=== PATIENT | male | born 1935 | race Caucasian/White ===

== ENCOUNTER 2016-06-21 05:51 | Inpatient (IN) | payer MEDICARE, OTHER ==
--- NOTE | ~2016-06-21 | DS ---
Discharge Summary [facility] [address] [place]. [address] NAME: HELGA BOLAND : 35 STATUS : DIS IN PAT#: [id number] AGE: 81 ADM/REG DATE : 06/21/16 MR#: [id number] REPORT SERV DATE: 07/08/16 DICTATED BY: RENETTA BENNETT DATE: 07/08/16 REPORT STATUS : Draft TRANSCRIBED BY: ZOË DATE: 07/08/16 Data Collection from hospitalization DISCHARGE DIAGNOSES: 1. Coronary artery disease, status post coronary artery bypass grafting. 2. Paroxysmal atrial fibrillation - sinus rhythm. 3. Anemia. 4. Hypertension. 5. Hyperlipidemia. 6. History of prostate cancer. 7. Macular degeneration. 8. Bilateral cataracts. 9. Benign prostatic hypertrophy. 10.Nephrolithiasis. 11.Degenerative joint disease. 12.Premature ventricular contractions. 13.Former smoker. CONSULTATIONS: 1. Chasity Wright M.D. 2. Eugenia. Luis Esquivel M.D. PROCEDURES PERFORMED: 1. Cardiac catheterization on 06/21/2016. 2. Urgent coronary artery bypass grafting x3 with left internal mammary artery to the first obtuse marginal, reverse saphenous vein graft placed to the ramus intermedius, reverse saphenous vein graft placed to the posterior descending artery; tricuspid valve repair using a 30-mm annuloplasty ring system (MC3); endoscopic vein harvest of the saphenous vein from the right leg; transesophageal echocardiography on 06/22/2016. 3. Carotid blood flow study on 06/21/2016. MEDICATIONS: Uroxatral 10 mg daily, Cordarone 200 mg daily, vitamin C 1000 mg twice a day, aspirin 81 mg daily, Lipitor 40 mg at bedtime, Cardura 4 mg every morning, ferrous sulfate 300 mg twice a day, Lasix 20 mg daily, Morley 5/325 one tablet every eight hours as needed, Prinivil 5 mg daily, Robaxin 750 mg twice a day, Lopressor 25 mg twice a day, Nitrostat 0.4 mg sublingually as needed, and Roxicodone 5 mg every four hours as needed. CONDITION AT DISCHARGE: Stable. DISPOSITION: The patient was discharged home to be followed by home health care on a low- sodium, low-cholesterol, cardiac diet with activities as instructed. He would follow up with Ivan Almazan on 08/25/2016. He would follow up with Dr. Kun Esquivel on 08/03/2016. He would follow up with Dr. Chasity Wright on 08/04/2016 and he would follow up with Dr. Johnna Weeks on 07/06/2016. He would follow up at cardiac rehab on 08/11/2016. HOSPITAL COURSE: This is an 81-year-old man who is very active in vital who reported having some chest discomfort and shortness of breath as well as activity intolerance over the past several weeks or months. This had been progressive and was now associated with activity as Discharge Summary [place] [id number] [place]. [address] NAME: HELGA BOLAND : 35 STATUS : DIS IN PAT#: [id number] AGE: 81 ADM/REG DATE : 06/21/16 MR#: [id number] REPORT SERV DATE: 07/08/16 DICTATED BY: RENETTA BENNETT DATE: 07/08/16 REPORT STATUS : Draft TRANSCRIBED BY: ZOË DATE: 07/08/16 benign as planting gallardo. He reports that the pain does not awaken him at night. He does not had any nocturnal symptoms and does not have any symptoms at rest. The pain is relieved with rest. He had recently been evaluated by Dr. Kun Esquivel with a stress test that was graded as a moderate risk. He also had an echocardiogram that showed normal left ventricular function and no significant valvulopathy and mild left atrial enlargement. It was felt that he would need to undergo a coronary arteriogram and possible further surgical intervention. He was admitted at this time for further evaluation and treatment. Upon admission, he was taken to the cardiac lab support service tech by Dr. Kun Esquivel, where he underwent the above-mentioned procedure. He tolerated this well, and there were no complications. The patient was found to have severe two-vessel disease in the circumflex and right coronary arteries with near subtotal occlusion of the circumflex. It was felt that the patient would need to undergo coronary artery bypass grafting. The following day, the patient was taken to the operating room where he underwent the above-mentioned procedure. He tolerated this well, and there were no complications. On postop day #1, he had decreased breath sounds. His abdomen was soft and nontender. He had no edema. He is going to be watched in the ICU that day. We encouraged him to mobilize. He did have some chest wall pain. He had no dyspnea. Platelet count was decreased. Pepcid was stopped. On 06/24/2016, white count was 12.3. His lungs were clear. Pain was well controlled. He had no shortness of breath. Pacing wires and chest tubes were discontinued. On 06/25/2016, he did have some nausea. Reglan was given. He has not had a bowel movement. Amiodarone would be held for 36 hours. On 06/27/2016, he complained of having a poor energy level. He also had some shortness of breath. He had audible wheezing. Chest x-ray showed bibasilar small effusions and atelectasis. He was seen by Dr. Chasity Wright regarding the shortness of breath and wheezing. He had been getting bronchodilators and had received Lasix that day. He said he was feeling better than he did that morning. He felt like the breathing treatments were helping him significantly. He had not been using his incentive spirometer as prescribed. Bronchodilators were continued. EzPAP was added to his regimen. We encouraged him to use the incentive spirometer. She recommended adding nebulized steroids with budesonide via nebulization. Procalcitonin level and BNP were going to be checked. We would recheck his chest x-ray and wean oxygen as tolerated. He was encouraged to increase his activity. The next day, discharge planning was performed. He said he was feeling much better. His lungs were clear. He has had a solitary episode of paroxysmal atrial fibrillation. I did favor no anticoagulation in this patient if this was okay with Cardiology. He was breathing better. On 06/29/2016, he denied any cough. He felt like his breathing was better. Home O2 was recommended if he would qualify. He had no chest pain. His shortness of breath had decreased. He did have a bowel movement. It was felt that he would need warfarin. He was changed to oral amiodarone. Discharge instructions were given. Due to his improved and stable condition, he was discharged home to be followed by home health care with the above- stated instructions. Information collected by: Phoebe Fish I submit the above information as my discharge summary. Discharge Summary [place] [address] [address] NAME: HELGA BOLAND : 35 STATUS : DIS IN PAT#: [id number] AGE: 81 ADM/REG DATE : 06/21/16 MR#: [id number] REPORT SERV DATE: 07/08/16 DICTATED BY: RENETTA BENNETT DATE: 07/08/16 REPORT STATUS : Draft TRANSCRIBED BY: JAVIERL DATE: 07/08/16 TG/ZOË Renetta Bennett M.D. / [id number] CC: Vinny Trinidad OLIVER M
--- NOTE | ~2016-06-21 | OP ---
Record Of Operation [facility] [address] [place]. [address] NAME: HELGA BOLAND : 35 STATUS : ADM IN PAT#: [id number] AGE: 81 ADM/REG DATE : 06/21/16 MR#: [id number] REPORT SERV DATE: 06/22/16 DICTATED BY: RENETTA BENNETT DATE: 06/22/16 REPORT STATUS : Draft TRANSCRIBED BY: MODL DATE: 06/22/16 DATE OF PROCEDURE: 06/22/2016 PREOPERATIVE DIAGNOSES: 1. Coronary artery disease with angina. 2. Tricuspid valve insufficiency. 3. Hypertension. 4. Hyperlipidemia. 5. Obesity. 6. History of prostate carcinoma. POSTOPERATIVE DIAGNOSES: 1. Coronary artery disease with angina. 2. Tricuspid valve insufficiency. 3. Hypertension. 4. Hyperlipidemia. 5. Obesity. 6. History of prostate carcinoma. PROCEDURES PERFORMED: 1. Urgent coronary artery bypass grafting x3, left internal mammary artery placed to the first obtuse marginal, reverse saphenous vein graft placed to the ramus intermedius, reverse saphenous vein graft placed to the posterior descending artery. 2. Tricuspid valve repair using a 30 mm annuloplasty ring system (MC3). 3. Endoscopic vein harvest of the saphenous vein from the right leg. 4. Transesophageal echocardiography. SURGEON: Renetta Bennett M.D. ASSISTANTS: Lobito Maldonado and Nimisha Anaya. ANESTHESIA: General with Dr. Silva. MORTGAGE BRANCH MANAGER: Kun Esquivel M.D. PRIMARY CARE: Layton Weeks. INDICATIONS: This is an 81-year-old gentleman who has been having episodes of chest discomfort. He underwent a stress test in May that demonstrated moderate risk with apical and basilar inferior ischemia. Dr. Esquivel performed cardiac catheterization demonstrating significant two-vessel coronary artery disease with critical lesions in the circumflex and right coronary arteries. The circumflex vessel was not amenable to percutaneous intervention and we were asked to see the patient for possible coronary artery bypass grafting. We discussed this operation with the patient, and after lengthy discussion of the operations, its indication and risks, he wished to proceed. STS predicted mortality of 1.5%, morbidity mortality of 11.7%. Record Of Operation [facility] [address] [place]. [address] NAME: HELGA BOLAND : 35 STATUS : ADM IN PAT#: [id number] AGE: 81 ADM/REG DATE : 06/21/16 MR#: [id number] REPORT SERV DATE: 06/22/16 DICTATED BY: RENETTA BENNETT DATE: 06/22/16 REPORT STATUS : Draft TRANSCRIBED BY: ZOË DATE: 06/22/16 FINDINGS AT OPERATION: 1. Cross-clamp 112 minutes, total pump time 123 minutes. 2. The obtuse marginal was 2 mm and mildly diseased. A 3 mm THORNTON was anastomosed to it with good runoff. 3. The ramus intermedius was 1.75 mm and mildly diseased. A 3.5 mm RSVG was anastomosed to it with good runoff. 4. The posterior descending artery was 2 mm and moderately diseased. A 3.5 mm RSVG was anastomosed to it with good runoff. 5. The vein quality was good and all grafts had good Doppler signal at the end of the case. 6. The tricuspid valve had moderate TR echocardiography. Tricuspid valve annulus was measured to be about 43 to 45 mm. 7. The tricuspid valve was repaired using a 30 mm annuloplasty ring system. This was secured in place using 14 Cor-Knots. 8. YANE at the end of the operation demonstrated good left ventricular function. There was mild mitral insufficiency and no residual tricuspid insufficiency. PATHOLOGIC SPECIMENS: None. DESCRIPTION OF PROCEDURE: The patient was brought to the operating suite where general anesthesia was induced and airway was secured with an endotracheal tube. Lines were secured by Anesthesia. Anthony catheter was placed. YANE probe was placed by Dr. Silva and examination carried out in my attendance. The mitral valve insufficiency was judged to be mild with a low PISA coefficient. The tricuspid valve had moderate insufficiency. The annulus was measured greater than 40 mm. It was discussed and agreed that tricuspid valve annuloplasty should be performed. The saphenous vein was harvested from the right leg using endoscopic technique. Briefly, the vein was cut directly down upon through a 2 cm incision placed at the medial aspect of the right knee. Then, using VasoView trocars, the vessel was dissected from the surrounding subcutaneous tissue and fat. The side branches were identified, ligated, divided with cautery. Once adequate length of vein had been dissected, a counter incision made up in the groin where the vein was ligated, divided, and brought out through the knee incision. Unfortunately, the vein quality was poor up in the thigh as it was very small and not usable as conduit. Therefore, we harvested the saphenous vein going down the leg in an identical fashion. When this vessel had been completely dissected and side branches divided, a counter incision was made in the lower leg where the saphenous vein was again ligated and divided. It was then brought out through the knee incision. There was adequate conduit for bypass material and leg wounds were made hemostatic and closed in layers with absorbable suture and skin closed subcuticular fashion. Next, a midline sternal incision was made and the sternum opened with a saw. The left hemithorax was elevated and the endothoracic fascia was incised. Side branch of the MEGAN were clipped and divided. Once the MEGAN was completely dissected, the patient was anticoagulated with heparin and chest tube was placed in the left pleural cavity. The MEGAN was clipped and divided distally. There was good flow through the MEGAN and its pedicle was Record Of Operation [place] [id number] [facility] [place]. [address] NAME: HELGA BOLAND : 35 STATUS : ADM IN [facility]#: [id number] AGE: 81 ADM/REG DATE : 06/21/16 MR#: [id number] REPORT SERV DATE: 06/22/16 DICTATED BY: RENETTA BENNETT DATE: 06/22/16 REPORT STATUS : Draft TRANSCRIBED BY: ZOË DATE: 06/22/16 infiltrated with papaverine. Next, the Brian retractor was placed in the pericardium over from the innominate vein. The diaphragm was T'd and tacked to the side of the chest wall. Cannulation pursestring sutures were placed and cannulation was carried out in a routine manner. A retrograde cardioplegia cannula was placed in the coronary sinus. When all was in readiness, the patient was placed on cardiopulmonary bypass. The distal targets were marked out on the heart as described in the findings. Then, a heart support was placed. The aorta was crossclamped and an initial dose of cold blood cardioplegia solution was given in a combination of antegrade and retrograde fashion and then in a retrograde manner following proximal anastomoses. Following the first dose of cardioplegia, the heart was positioned for the PDA graft. Arteriotomy was made and the vein graft was trimmed and anastomosed to it with 7-0 Prolene. The vein graft was measured to the right side of the ascending aorta where it was divided. We then positioned the heart for the ramus intermedius graft. Another arteriotomy was made and the vein graft was trimmed and anastomosed to it with 7-0 Prolene. This vein graft was measured back to the left side of the ascending aorta, where it was divided. Next, proximal ends of the two vein grafts were anastomosed to 4.5 mm punch aortotomy with 6-0 Prolene. Another dose of cardioplegia was given and the heart was positioned for the obtuse marginal graft. Arteriotomy was made and the left mammary artery was brought into the pericardial space through a notch in the pericardium over the pulmonary artery. The MEGAN was opened correspondingly and anastomosed to the obtuse marginal vessel with a running suture of 8-0 Prolene. The endothoracic fascia was tacked to the epicardium. Another dose of cardioplegia was given and the heart support was removed. Following the next dose of cardioplegia, warming was begun. We then made plans for the tricuspid valve annuloplasty. The dual stage venous cannula was then traded out for two single stage cannulas positioned in the SVC and IVC and connected to the venous line of the pump. The vessel loops were placed around the both structures and secured. Then, the right atriotomy was made. The tricuspid valve was inspected and the leaflets appeared to be building with moderate leakage. I did not see any ruptured cords or flail leaflet. The valve was sized and a 30 mm annuloplasty ring system (MC3) was selected. Next, interrupted nonpledgeted sutures of 2-0 Tycron placed circumferentially about the tricuspid valve annulus with the exception of the area of the conduction fibers along the septal portion of the leaflet. The sutures were passed through the sewing cuff of the annuloplasty ring. This was lowered into position and each of the sutures individually secured and divided using a Cor-Knot device. A total of 14 Cor-Knots were utilized. Then, iced saline was used to inflate the right ventricle and having done so there was minimal tricuspid insufficiency. The [place]-Caty catheter had been removed earlier was then placed directly back through the tricuspid valve into the pulmonary outflow tract. The right atriotomy was closed in a two-layer fashion with running non-pledgeted suture of 6 0 Prolene. Record Of Operation [facility] [address] [facility] [place]. [address] NAME: HELGA BOLAND : 35 STATUS : ADM IN PAT#: [id number] AGE: 81 ADM/REG DATE : 06/21/16 MR#: [id number] REPORT SERV DATE: 06/22/16 DICTATED BY: RENETTA BENNETT DATE: 06/22/16 REPORT STATUS : Draft TRANSCRIBED BY: ZOË DATE: 06/22/16 The patient was placed in Trendelenburg and final dose of warm blood cardioplegia was given in a retrograde fashion. Ventricular and atrial pacing wires were placed. Following the last dose of cardioplegia and deairing of the aorta, the aortic cross clamp was removed. The distal and proximal anastomoses and suture lines were inspected and made hemostatic. Doppler demonstrated good flow through the grafts. The heart resumed a sinus rhythm spontaneously and was paced atrially at a rate of 80. Ventilation was begun. When the heart demonstrated good contractility, it was allowed to fill and eject. When deairing was completed, the patient was taken out of Trendelenburg and the ascending aortic vent removed and these pursestring sutures tied and reinforced. The patient was weaned from cardiopulmonary bypass with minimal inotropic support. The venous cannula was removed and these pursestring sutures tied. YANE examination demonstrated good ventricular function with mild mitral valve insufficiency and very minimal tricuspid valve insufficiency residual. Protamine was administered by Anesthesia, and following a period of hemodynamic stability, the aortic cannula was removed and these pursestring sutures tied and reinforced. The patient continued do well and chest irrigated copiously with saline. Meticulous hemostasis was obtained. Hemasorb was placed along the cut edge of the sternum. Once hemostasis was assured, the pericardium was draped over the anterior surface of heart and tacked into position. Chest tubes were placed and a sternum reapproximated with eight sternal wires. The clavipectoral fascia and linea alba closed with #1 Stratafix. The subcutaneous tissue was closed with Stratafix and skin closed in a subcuticular fashion. The patient tolerated the procedure well. There were no complications. Sponge and needle counts were correct. DISPOSITION: The patient was left intubated, sedated, and transported to the Intensive Care Unit in stable condition. AKILAH Renetta Bennett M.D. / [id number] CC: Vinny Trinidad Dr.
--- NOTE | ~2016-06-21 | HP ---
History And Physical [id number] [place]. [address] NAME: HELGA BOLAND : 35 STATUS : DIS IN PAT#: [id number] AGE: 81 ADM/REG DATE : 06/21/16 MR#: [id number] REPORT SERV DATE: 07/05/16 DICTATED BY: IVAN GRUBBS DATE: 06/21/16 REPORT STATUS : Draft TRANSCRIBED BY: MODL DATE: 06/21/16 DATE OF ADMISSION: 06/21/2016 REPORT TITLE: Consultation Note BODY AFTER REPORT TITLE: CHIEF COMPLAINT: Chest pain, shortness of breath with exertion. HISTORY OF PRESENT ILLNESS: This is an 81-year-old gentleman, still very active in vital, who reports chest discomfort and shortness of breath and activity intolerance over the past several weeks or months. This has been progressive, and now is associated with activity as benign as planting gallardo. He reports that the pain does not awaken him at night. He does not have any nocturnal symptoms, does not have any symptoms at rest. His pain is relieved with rest. He denies any paroxysmal nocturnal dyspnea. Denies any orthopnea. Denies any syncope or near syncope. Recently, he underwent evaluation by Dr. Esquivel with stress test that was graded moderate risk. At that time, he also had an echocardiogram that showed normal left ventricular function and no significant valvulopathy, mild left atrial enlargement. He underwent further evaluation with coronary arteriogram today which demonstrated severe two-vessel disease in the circumflex and the right coronary arteries with near subtotal occlusion of the circumflex. We were asked to see for possible urgent coronary artery bypass grafting due to anatomy and this was discussed with the patient and his family today. PRIOR MEDICAL HISTORY: 1. Hypertension. 2. Hyperlipidemia. 3. Prostate cancer. 4. Macular degeneration. 5. Bilateral cataracts. 6. Benign prostatic hypertrophy. 7. Nephrolithiasis. 8. Degenerative joint disease. 9. PVCs. PRIOR SURGICAL HISTORY: Significant for appendectomy and cholecystectomy, previous cystoscopy and intravenous pyelogram, and previous colonoscopy. ALLERGIES: NONE KNOWN. MEDICATIONS TAKEN AT HOME: Include Uroxatral 10 mg p.o. daily, amlodipine 2.5 mg p.o. daily, doxazosin 4 mg p.o. q.a.m., Vytorin 10/40 one p.o. at bedtime, [place] 5/325 one p.o. q.8 hours p.r.n. pain, Prinzide 20/12.5 mg one p.o. daily, meloxicam 7.5 mg p.o. b.i.d., Robaxin 750 mg p.o. b.i.d., metoprolol 25 mg 1/2 tablet p.o. b.i.d., Nitrostat 0.4 mg sublingual p.r.n. chest pain. History And Physical [address] [address] NAME: HELGA BOLAND : 35 STATUS : DIS IN PAT#: [id number] AGE: 81 ADM/REG DATE : 06/21/16 MR#: [id number] REPORT SERV DATE: 07/05/16 DICTATED BY: IVAN GRUBBS DATE: 06/21/16 REPORT STATUS : Draft TRANSCRIBED BY: ZOË DATE: 06/21/16 FAMILY HISTORY: Significant for coronary artery disease in father and mother, brother with CVA. SOCIAL HISTORY: He has a remote history of smoking up to a pack per day for 20 years, has been quit for well over 40 years. He is and lives with his . 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 REVIEW OF SYSTEMS: Significant for fatigue, headaches, dizziness. He reports history of heartburn, kidney stones, headaches, leg cramps, muscle pain and cramps, joint pain and low back pain, and arthritis. Otherwise, negative or as above. PHYSICAL EXAMINATION: GENERAL: He is a pleasant elderly gentleman, in no acute distress, lying in bed. His height is 185.42 cm, weight 103.41 kg. VITAL SIGNS: Blood pressure 163/80, temperature 97.8, pulse 53 and regular, respirations 20 and regular and unlabored, saturations 96% on room air. HEENT: Normocephalic, atraumatic. Pupils equal, round, and reactive to light and accommodation. Sclerae clear, conjunctivae pink. Oral and buccal mucosa pink and moist, he has upper dentures, lower partial plate. Mallampati class II airway. NECK: Supple. No restricted range of motion. No carotid bruits, no jugular venous distention. CHEST: No deformity, clear breath sounds bilaterally, no use of accessory muscles. BREASTS: Not examined. CV: Regular rate and rhythm without murmur or rub. He has palpable and symmetric central and peripheral pulses. No clubbing. No cyanosis. No edema. He has no lower extremity varicosities. ABDOMEN: Soft, obese, nontender with normoactive bowel sounds. No hepatosplenomegaly. /RECTAL: Declined. MUSCULOSKELETAL: No kyphoscoliosis. No asymmetry. NEUROLOGIC: He is alert and oriented, and his speech is clear and fluent. He has no focal deficits. Moves all extremities and upper and lower extremity strength is symmetric. SKIN/HAIR/NAILS: No lesions, masses, or rashes. DATA: His coronary arteriogram which I reviewed today showing normal left ventricular function and severe two-vessel flow-limiting coronary artery disease. His echocardiogram as mentioned above. EKG showing Q-waves in lead III and aVF, sinus rhythm with first-degree AV block. Telemetry strips showing wide-complex tachycardia which was irregular, ventricular tachycardia versus atrial fib with fast ventricular response. CURRENT LABORATORY DATA: Sodium is 145, potassium 4.2, chloride 110, CO2 of 27, BUN 18, creatinine 0.9. Lipid profile is unremarkable. CBC shows WBCs 4.7, hemoglobin 12.8 g, hematocrit 37%, platelets 131,000. IMPRESSION: Crescendo anginal symptoms with exertion and severe stenosis of circumflex and right coronary arteries, with normal left ventricular function. We were asked to see for History And Physical [address] [address] NAME: HELGA BOLAND : 35 STATUS : DIS IN PAT#: [id number] AGE: 81 ADM/REG DATE : 06/21/16 MR#: [id number] REPORT SERV DATE: 07/05/16 DICTATED BY: IVAN GRUBBS DATE: 06/21/16 REPORT STATUS : Draft TRANSCRIBED BY: MODL DATE: 06/21/16 possible urgent coronary artery bypass grafting due to the patient's anatomy, and this was discussed with the patient and his family at bedside today. We talked about the surgery, usual perioperative course, indications, benefits, and risks. Serious risks include but are not limited to, things such as bleeding, infection including deep sternal infection, mediastinitis, damage to the kidneys including kidney failure and dialysis, damage to the liver and the lungs, heart attack, stroke, abnormal heart rhythm, need for blood or blood product transfusion and their attendant risks, and even . The patient indicates his understanding and is willing to proceed. Using Society of Thor[employer] Surgeons' database, expected risk of mortality is calculated at 1.494%, morbidity or mortality at 11.691% which are not elevated. Our tentative plan is to proceed with surgical revascularization tomorrow, and in the interim obtain carotid ultrasound. We very much appreciate the opportunity to participate in this pleasant gentleman's care. MSJerardo/ZOË Ivan Grubbs N.P. / [id number] CC: Vinny Trinidad Oliver M
--- NOTE | ~2016-06-21 | CN ---
Consultation Report [address] [facility] [place]. [address] NAME: HELGA TABARES : 35 STATUS : ADM IN [facility]#: [id number] AGE: 81 ADM/REG DATE : 06/21/16 MR#: [id number] REPORT SERV DATE: 06/27/16 DICTATED BY: CHASITY RAMSAY DATE: 06/27/16 REPORT STATUS : Draft TRANSCRIBED BY: MODL DATE: 06/27/16 PULMONARY CONSULTATION DATE OF CONSULTATION: 06/27/2016 REASON FOR CONSULTATION: Pulmonary consulted due to shortness of breath and wheezing. HISTORY OF PRESENT ILLNESS: Mr. Tabares is an 81-year-old white male, former smoker, with history of shortness of breath, and wheezing that started today - postoperative day #5 after CABG. He denies pulmonary history and as noted, he had a CABG five days ago. He states, he was doing well until he developed shortness of breath and wheezing today. He states, his symptoms came on "gradually." He denies cough, sputum production, fever, chills, night sweats, hemoptysis, or chest tightness. He does complain of chest pain at his incision site. He has been getting bronchodilators and received Lasix today. He states, he feels better since this morning. He also feels the breathing treatments are helping him significantly. It is notable that, he has not been using his incentive spirometer as prescribed. PAST MEDICAL HISTORY: He denies a past medical history of pulmonary diseases. 1. Coronary artery disease - status post CABG five days ago. 2. Hyperlipidemia. 3. Hypertension. 4. Prostate cancer. 5. Nephrolithiasis. 6. Appendectomy. 7. Cholecystectomy. 8. Macular degeneration. 9. Bilateral cataract surgery. 10.Previous nephrolithiasis. FAMILY HISTORY: He denies family history of pulmonary diseases. SOCIAL HISTORY: He smoked one pack of cigarettes per day for forty five years and quit forty years ago. He denies occupational exposures, past/present drug use, chewing tobacco, or ethanol intake. He is and has three children. MEDICATIONS: Outpatient and inpatient medications were reviewed and are as documented in the record. He was on no outpatient pulmonary medications. ALLERGIES: HE DENIES MEDICATION ALLERGIES. Consultation Report [address] [place]. [address] NAME: HELGA TABARES : 35 STATUS : ADM IN PAT#: [id number] AGE: 81 ADM/REG DATE : 06/21/16 MR#: [id number] REPORT SERV DATE: 06/27/16 DICTATED BY: CHASITY RAMSAY DATE: 06/27/16 REPORT STATUS : Draft TRANSCRIBED BY: ZOË DATE: 06/27/16 REVIEW OF SYSTEMS: A 12-point system review was conducted and is remarkable for the symptoms as described in the history of present illness. He denies GERD symptoms, nasal symptoms, or symptoms of obstructive sleep apnea. PHYSICAL EXAMINATION: VITAL SIGNS: Temperature 98.7 degrees, heart rate 91, blood pressure 137/64, respiratory rate 16, oxygen saturation 96% on supplemental oxygen at a flow rate of 4 L/minute. GENERAL: Elderly white male. Alert, oriented, no apparent distress. Speaking in short sentences. Appears short of breath. HEENT: Normocephalic, atraumatic. There is no scleral icterus. The conjunctivae are clear. The oropharynx is clear. NECK: Supple. No lymphadenopathy was noted. CHEST/LUNGS: Sternotomy incision with bandage intact. No chest wall tenderness was noted. There is fair respiratory effort. There are diminished breath sounds at both bases. There are scattered expiratory wheezes, worse in the anterior lung tirado. There are no crackles or rhonchi. HEART: Regular rate and rhythm. No ectopy was noted. ABDOMEN: Soft, nontender, nondistended. There are normal bowel sounds in all four quadrants. BILATERAL EXTREMITIES: There is trace pretibial edema. No cyanosis or clubbing was noted. NEUROLOGICAL: Limited exam was found to be nonfocal. SKIN: No rashes were noted. LABORATORY RESULTS: Labs were reviewed and are as documented in the record. Notable labs include a white blood cell count of 6.7. IMAGING: The chest x-ray done today revealed small bilateral pleural effusions and bibasilar atelectasis. No infiltrates were noted. ASSESSMENT AND PLAN: Mr. Tabares is an 81-year-old white male, former smoker, with shortness of breath and wheezing that started today, five days after CABG. His symptoms are likely secondary to volume overload, atelectasis, and secretions. Diuresis has been initiated and he has noted some improvement in his symptoms. Recommend continuing bronchodilators - he is on albuterol every four hours. Recommend improving pulmonary toilet - EzPAP will be added to his regimen. He was encouraged to use his incentive spirometer. Recommend adding nebulized steroids - budesonide 0.5 mg via nebulization q.12 hours will be added to his regimen. Consultation Report [facility] [address] [place]. [address] NAME: HELGA TABARES : 35 STATUS : ADM IN PAT#: [id number] AGE: 81 ADM/REG DATE : 06/21/16 MR#: [id number] REPORT SERV DATE: 06/27/16 DICTATED BY: CHASITY RAMSAY DATE: 06/27/16 REPORT STATUS : Draft TRANSCRIBED BY: MODL DATE: 06/27/16 Check procalcitonin and BNP. Recheck chest x-ray. Wean his oxygen as tolerated. Increase activity. Thank you very much for this consultation. PS/ZOË Chasity Ramsay M.D. / [id number] CC: Vinny Trinidad
[~2016-06-21 05:51] MED LIST: CARDU4 PO; LOP25 PO; LORTAB 5 PO; LUMIGAN OPH; METHOC750B PO; MOBIC7.5 PO; NITROSTAT0.4 MG SL; NORCO1 TA1 PO; NORV25 PO; PRINZIDE1 TA1 PO; UROXATRAL PO; VYTORIN 10/40 T1 TAB PO
[2016-06-21 06:50] LABS: CALCIUM, SERUM 8.3 MG/DL (8.5-10.4); CHLORIDE, SERUM 110 MMOL/L (96-112); CHOL/HDL RATIO(NOT ORDER) 2.1 (0-5); CHOLESTEROL 149 MG/DL (< 200); CO2 (CARBON DIOXIDE) 27 MMOL/L (24-34); GFR AFRICAN AMERICAN 93 ML/MIN (>=60); GFR NON AFRICAN AMERICAN 80 ML/MIN (>=60); HDL CHOLESTEROL 70 MG/DL (> 39); LDL CHOLESTEROL 57 MG/DL (< 130); NON-HDL CHOLESTEROL 79 MG/DL (< 160); POTASSIUM, SERUM 4.2 MMOL/L (3.5-5.3); SODIUM, SERUM 145 MMOL/L (135-148); TRIGLYCERIDE 110 MG/DL (< 150)
[2016-06-21 06:50] LABS: BASOPHILS 0.2 %; BASOPHILS ABSOLUTE 0.01 10/3/uL (0.0-0.16); EOSINOPHILS 2.1 %; HEMOGLOBIN 12.8 g/dL (13.6-17.8); IMMATURE GRANULOCYTES 0.2 %; IMMATURE GRANULOCYTES ABSOLUTE 0.01 10/3/uL (0.0-0.11); MEAN CORPUS HGB CONC 34.6 g/dL (32.0-36.0); MEAN CORPUSCULAR HEMOGLOB 31.1 pg (26.0-34.0); MEAN CORPUSCULAR VOLUME 89.8 fL (80-100); MEAN PLATELET VOLUME 9.5 fL (9.2-13.0); MONOCYTES 13.5 %; MONOCYTES ABSOLUTE 0.63 10/3/uL (0.21-1.20); NEUTROPHILS ABSOLUTE 2.52 10/3/uL (2.02-8.40); PLATELET COUNT 131 10/3/uL (150-400); RBC DISTRIBUTION WIDTH 12.6 % (12.0-16.0); RED CELL COUNT 4.12 10/6/uL (4.7-6.1); WHITE BLOOD CELLS 4.7 10/3/uL (4.5-10.5)
[2016-06-21 06:51] LABS: BUN (BLOOD UREA NITROGEN) 18 MG/DL (6-23); GLUCOSE, SERUM 107 MG/DL (60-99)
[2016-06-21] MEDS ORDERED: PRINZIDE1 TA1 PO (07:00)
[2016-06-21 07:04] LABS: MANUAL DIFF NO %
[2016-06-21 19:48] LABS: WBC (NOT ORDERED) (RFLEX) 0 (0-5)
[2016-06-21 19:58] LABS: ASCORBIC ACID (UR NOT ORDER) NEG (NEG); BILIRUBIN, URINE NEGATIVE (NEG); KETONE, URINE NEGATIVE (NEG); LEUKOCYTE ESTERASE(NOT OR NEG (NEG)
[2016-06-22 04:29] LABS: BASOPHILS 0.2 %; BASOPHILS ABSOLUTE 0.01 10/3/uL (0.0-0.16); EOSINOPHILS 1.5 %; EOSINOPHILS ABSOLUTE 0.09 10/3/uL (0.0-0.53); HEMATOCRIT 34.9 % (40.0-51.0); HEMOGLOBIN 12.1 g/dL (13.6-17.8); IMMATURE GRANULOCYTES 0.2 %; IMMATURE GRANULOCYTES ABSOLUTE 0.01 10/3/uL (0.0-0.11); LYMPHOCYTES 26.6 %; LYMPHOCYTES ABSOLUTE 1.57 10/3/uL (0.67-4.30); MANUAL DIFF NO %; MEAN CORPUS HGB CONC 34.7 g/dL (32.0-36.0); MEAN CORPUSCULAR HEMOGLOB 30.9 pg (26.0-34.0); MEAN CORPUSCULAR VOLUME 89.3 fL (80-100); MEAN PLATELET VOLUME 9.5 fL (9.2-13.0); MONOCYTES 7.8 %; MONOCYTES ABSOLUTE 0.46 10/3/uL (0.21-1.20); NEUTROPHILS 63.7 %; NEUTROPHILS ABSOLUTE 3.77 10/3/uL (2.02-8.40); PLATELET COUNT 123 10/3/uL (150-400); RBC DISTRIBUTION WIDTH 12.6 % (12.0-16.0); RED CELL COUNT 3.91 10/6/uL (4.7-6.1); WHITE BLOOD CELLS 5.9 10/3/uL (4.5-10.5)
[2016-06-22 04:41] LABS: INTERNATIONAL NORMAL RATI 1.2 UNITS (-); PROTIME (NOT ORD) 14.9 SEC (12.0-14.5)
[2016-06-22 04:42] LABS: PARTIAL THROMBO TIME 54.8 SEC (22.5-37.2)
[2016-06-22 04:43] LABS: % IRON SAT 17 % (20-50); A/G RATIO 1.2 (0.7-1.9); ALBUMIN 3.2 G/DL (3.5-5.0); ALKALINE PHOSPHATASE 59 U/L (45-117); BUN (BLOOD UREA NITROGEN) 17 MG/DL (6-23); CALCIUM, SERUM 8.1 MG/DL (8.5-10.4); CHLORIDE, SERUM 110 MMOL/L (96-112); CO2 (CARBON DIOXIDE) 26 MMOL/L (24-34); CREATININE 0.84 MG/DL (0.70-1.30); GFR AFRICAN AMERICAN 95 ML/MIN (>=60); GFR NON AFRICAN AMERICAN 82 ML/MIN (>=60); GLOBULIN 2.6 G/DL (2.5-4.1); GLUCOSE, SERUM 103 MG/DL (60-99); IRON BINDING CAPACITY 243 MCG/DL (250-450); IRON, SERUM 41 MCG/DL (35-150); POTASSIUM, SERUM 4.1 MMOL/L (3.5-5.3); SGOT(AST) 14 U/L (5-40); SGPT(ALT) 18 U/L (5-65); SODIUM, SERUM 145 MMOL/L (135-148); TOTAL BILIRUBIN 0.5 MG/DL (0-1.2); TOTAL PROTEIN 5.8 G/DL (6.0-8.5)
[2016-06-22 16:36] LABS: BE (BASE EXCESS) -6.9 MEQ/L (0 +/- 2.5); CARBOXYHEMOGLOBIN 0.3 % (0-3); HCO3 (ACTUAL BICARBONATE) 19.5 MEQ/L (23-27); HEMOBLOGIN CONTENT 11.9 G/DL (14-18); INSTRUMENT SERIAL # 11843; METHEMOGLOBIN 0.6 % (0-3); MODE SIMV; O2 CONTENT 16.8 VOL% (18-24); OPERATOR ID 35188; PCO2 (CO2 TENSION) 43 MMHG (35-45); PO2 (O2 TENSION) 212 MMHG (79-93); SAMPLE Arterial; TIDAL VOLUME 700 ML; pH 7.28 (7.37-7.43)
[2016-06-22 17:27] LABS: HEMATOCRIT 31.8 % (40.0-51.0); HEMOGLOBIN 11.3 g/dL (13.6-17.8); PLATELET COUNT 97 10/3/uL (150-400)
[2016-06-22 17:32] LABS: INTERNATIONAL NORMAL RATI 1.4 UNITS (-); PARTIAL THROMBO TIME 35.9 SEC (22.5-37.2)
[2016-06-22 17:33] LABS: PROTIME (NOT ORD) 17.4 SEC (12.0-14.5)
[2016-06-22 17:37] LABS: BUN (BLOOD UREA NITROGEN) 15 MG/DL (6-23); CALCIUM, SERUM 7.8 MG/DL (8.5-10.4); CHLORIDE, SERUM 116 MMOL/L (96-112); CO2 (CARBON DIOXIDE) 25 MMOL/L (24-34); CREATININE 1.05 MG/DL (0.70-1.30); GFR AFRICAN AMERICAN 77 ML/MIN (>=60); GFR NON AFRICAN AMERICAN 66 ML/MIN (>=60); GLUCOSE, SERUM 109 MG/DL (60-99); POTASSIUM, SERUM 4.2 MMOL/L (3.5-5.3); SODIUM, SERUM 148 MMOL/L (135-148)
[2016-06-22 21:08] LABS: BE (BASE EXCESS) -4.1 MEQ/L (0 +/- 2.5); CARBOXYHEMOGLOBIN 0.2 % (0-3); DEVICE NC; HCO3 (ACTUAL BICARBONATE) 20.4 MEQ/L (23-27); HEMOBLOGIN CONTENT 12.6 G/DL (14-18); INSTRUMENT SERIAL # 11843; METHEMOGLOBIN 0.4 % (0-3); O2 CONTENT 16.3 VOL% (18-24); OPERATOR ID 16469; PCO2 (CO2 TENSION) 36 MMHG (35-45); PO2 (O2 TENSION) 68 MMHG (79-93); SAMPLE Arterial; pH 7.38 (7.37-7.43)
[2016-06-22 22:41] LABS: HEMOGLOBIN 11.7 g/dL (13.6-17.8)
[2016-06-22 22:54] LABS: CALCIUM, SERUM 7.6 MG/DL (8.5-10.4); CHLORIDE, SERUM 116 MMOL/L (96-112); CO2 (CARBON DIOXIDE) 24 MMOL/L (24-34); CREATININE 0.96 MG/DL (0.70-1.30); GFR AFRICAN AMERICAN 86 ML/MIN (>=60); GFR NON AFRICAN AMERICAN 74 ML/MIN (>=60); GLUCOSE, SERUM 109 MG/DL (60-99); SODIUM, SERUM 148 MMOL/L (135-148)
[2016-06-22 22:57] LABS: BUN (BLOOD UREA NITROGEN) 19 MG/DL (6-23)
[2016-06-23 04:05] LABS: BASOPHILS 0 %; EOSINOPHILS 0 %; HEMATOCRIT 29.9 % (40.0-51.0); HEMOGLOBIN 10.6 g/dL (13.6-17.8); IMMATURE GRANULOCYTES 0.3 %; IMMATURE GRANULOCYTES ABSOLUTE 0.03 10/3/uL (0.0-0.11); LYMPHOCYTES 3.6 %; LYMPHOCYTES ABSOLUTE 0.39 10/3/uL (0.67-4.30); MEAN CORPUS HGB CONC 35.5 g/dL (32.0-36.0); MEAN CORPUSCULAR HEMOGLOB 31.6 pg (26.0-34.0); MEAN CORPUSCULAR VOLUME 89.3 fL (80-100); MEAN PLATELET VOLUME 10.1 fL (9.2-13.0); MONOCYTES 4.2 %; MONOCYTES ABSOLUTE 0.46 10/3/uL (0.21-1.20); NEUTROPHILS 91.9 %; NEUTROPHILS ABSOLUTE 10.07 10/3/uL (2.02-8.40); PLATELET COUNT 87 10/3/uL (150-400); RBC DISTRIBUTION WIDTH 13.2 % (12.0-16.0); RED CELL COUNT 3.35 10/6/uL (4.7-6.1)
[2016-06-23 04:06] LABS: MANUAL DIFF NO %
[2016-06-23 04:20] LABS: BUN (BLOOD UREA NITROGEN) 20 MG/DL (6-23); CALCIUM, SERUM 8.1 MG/DL (8.5-10.4); CHLORIDE, SERUM 115 MMOL/L (96-112); CO2 (CARBON DIOXIDE) 22 MMOL/L (24-34); GFR AFRICAN AMERICAN 93 ML/MIN (>=60); GFR NON AFRICAN AMERICAN 80 ML/MIN (>=60); POTASSIUM, SERUM 4.5 MMOL/L (3.5-5.3); SODIUM, SERUM 146 MMOL/L (135-148)
[2016-06-23 04:21] LABS: GLUCOSE, SERUM 164 MG/DL (60-99)
[2016-06-23 16:20] LABS: HEMATOCRIT 28.7 % (40.0-51.0); HEMOGLOBIN 9.6 g/dL (13.6-17.8)
[2016-06-23 16:27] LABS: BUN (BLOOD UREA NITROGEN) 27 MG/DL (6-23); CALCIUM, SERUM 8.6 MG/DL (8.5-10.4); CHLORIDE, SERUM 111 MMOL/L (96-112); CO2 (CARBON DIOXIDE) 23 MMOL/L (24-34); CREATININE 1.25 MG/DL (0.70-1.30); GFR AFRICAN AMERICAN 62 ML/MIN (>=60); GFR NON AFRICAN AMERICAN 54 ML/MIN (>=60); GLUCOSE, SERUM 101 MG/DL (60-99); POTASSIUM, SERUM 4.5 MMOL/L (3.5-5.3); SODIUM, SERUM 144 MMOL/L (135-148)
[2016-06-24 03:52] LABS: BASOPHILS 0 %; EOSINOPHILS 0 %; HEMATOCRIT 26.9 % (40.0-51.0); HEMOGLOBIN 9.3 g/dL (13.6-17.8); IMMATURE GRANULOCYTES 0.3 %; IMMATURE GRANULOCYTES ABSOLUTE 0.04 10/3/uL (0.0-0.11); LYMPHOCYTES 6.5 %; MEAN CORPUS HGB CONC 34.6 g/dL (32.0-36.0); MEAN CORPUSCULAR HEMOGLOB 31.5 pg (26.0-34.0); MEAN CORPUSCULAR VOLUME 91.2 fL (80-100); MEAN PLATELET VOLUME 10.2 fL (9.2-13.0); MONOCYTES 9.9 %; MONOCYTES ABSOLUTE 1.22 10/3/uL (0.21-1.20); NEUTROPHILS 83.3 %; NEUTROPHILS ABSOLUTE 10.24 10/3/uL (2.02-8.40); PLATELET COUNT 86 10/3/uL (150-400); RBC DISTRIBUTION WIDTH 13.9 % (12.0-16.0); RED CELL COUNT 2.95 10/6/uL (4.7-6.1); WHITE BLOOD CELLS 12.3 10/3/uL (4.5-10.5)
[2016-06-24 04:04] LABS: BUN (BLOOD UREA NITROGEN) 30 MG/DL (6-23); CALCIUM, SERUM 8.3 MG/DL (8.5-10.4); CHLORIDE, SERUM 109 MMOL/L (96-112); CREATININE 0.95 MG/DL (0.70-1.30); GFR AFRICAN AMERICAN 87 ML/MIN (>=60); GFR NON AFRICAN AMERICAN 75 ML/MIN (>=60); POTASSIUM, SERUM 4.5 MMOL/L (3.5-5.3); SODIUM, SERUM 141 MMOL/L (135-148)
[2016-06-24 04:05] LABS: MANUAL DIFF NO %
[2016-06-24 04:11] LABS: CO2 (CARBON DIOXIDE) 28 MMOL/L (24-34); GLUCOSE, SERUM 153 MG/DL (60-99)
[2016-06-25 05:09] LABS: BASOPHILS 0 %; EOSINOPHILS 0 %; HEMATOCRIT 25.5 % (40.0-51.0); HEMOGLOBIN 8.6 g/dL (13.6-17.8); IMMATURE GRANULOCYTES 0.4 %; IMMATURE GRANULOCYTES ABSOLUTE 0.04 10/3/uL (0.0-0.11); LYMPHOCYTES 7.5 %; LYMPHOCYTES ABSOLUTE 0.73 10/3/uL (0.67-4.30); MEAN CORPUS HGB CONC 33.7 g/dL (32.0-36.0); MEAN CORPUSCULAR HEMOGLOB 31.2 pg (26.0-34.0); MEAN CORPUSCULAR VOLUME 92.4 fL (80-100); MEAN PLATELET VOLUME 10.5 fL (9.2-13.0); MONOCYTES 8.4 %; MONOCYTES ABSOLUTE 0.82 10/3/uL (0.21-1.20); NEUTROPHILS 83.7 %; NEUTROPHILS ABSOLUTE 8.15 10/3/uL (2.02-8.40); PLATELET COUNT 89 10/3/uL (150-400); RED CELL COUNT 2.76 10/6/uL (4.7-6.1); WHITE BLOOD CELLS 9.7 10/3/uL (4.5-10.5)
[2016-06-25 05:15] LABS: INTERNATIONAL NORMAL RATI 1.3 UNITS (-); PROTIME (NOT ORD) 15.7 SEC (12.0-14.5)
[2016-06-25 05:17] LABS: MANUAL DIFF NO %
[2016-06-25 05:24] LABS: CALCIUM, SERUM 8.4 MG/DL (8.5-10.4); CHLORIDE, SERUM 108 MMOL/L (96-112); CO2 (CARBON DIOXIDE) 24 MMOL/L (24-34); CREATININE 0.95 MG/DL (0.70-1.30); GFR AFRICAN AMERICAN 87 ML/MIN (>=60); GFR NON AFRICAN AMERICAN 75 ML/MIN (>=60); GLUCOSE, SERUM 131 MG/DL (60-99); POTASSIUM, SERUM 4.4 MMOL/L (3.5-5.3); SODIUM, SERUM 140 MMOL/L (135-148)
[2016-06-25 05:26] LABS: BUN (BLOOD UREA NITROGEN) 37 MG/DL (6-23)
[2016-06-26 04:52] LABS: BASOPHILS 0 %; EOSINOPHILS 0.7 %; EOSINOPHILS ABSOLUTE 0.06 10/3/uL (0.0-0.53); HEMATOCRIT 23.8 % (40.0-51.0); HEMOGLOBIN 8.2 g/dL (13.6-17.8); IMMATURE GRANULOCYTES 0.3 %; IMMATURE GRANULOCYTES ABSOLUTE 0.03 10/3/uL (0.0-0.11); LYMPHOCYTES 9.2 %; LYMPHOCYTES ABSOLUTE 0.82 10/3/uL (0.67-4.30); MEAN CORPUS HGB CONC 34.5 g/dL (32.0-36.0); MEAN CORPUSCULAR HEMOGLOB 31.8 pg (26.0-34.0); MEAN CORPUSCULAR VOLUME 92.2 fL (80-100); MEAN PLATELET VOLUME 9.8 fL (9.2-13.0); MONOCYTES 10.6 %; MONOCYTES ABSOLUTE 0.95 10/3/uL (0.21-1.20); NEUTROPHILS 79.2 %; NEUTROPHILS ABSOLUTE 7.09 10/3/uL (2.02-8.40); PLATELET COUNT 97 10/3/uL (150-400); RBC DISTRIBUTION WIDTH 13.8 % (12.0-16.0); RED CELL COUNT 2.58 10/6/uL (4.7-6.1)
[2016-06-26 04:55] LABS: MANUAL DIFF NO %
[2016-06-26 05:01] LABS: CALCIUM, SERUM 8.1 MG/DL (8.5-10.4); CHLORIDE, SERUM 106 MMOL/L (96-112); CO2 (CARBON DIOXIDE) 26 MMOL/L (24-34); CREATININE 1.14 MG/DL (0.70-1.30); GFR AFRICAN AMERICAN 70 ML/MIN (>=60); GFR NON AFRICAN AMERICAN 60 ML/MIN (>=60); GLUCOSE, SERUM 128 MG/DL (60-99); POTASSIUM, SERUM 4.5 MMOL/L (3.5-5.3); SODIUM, SERUM 136 MMOL/L (135-148)
[2016-06-26 05:09] LABS: BUN (BLOOD UREA NITROGEN) 45 MG/DL (6-23)
[2016-06-27 04:58] LABS: INTERNATIONAL NORMAL RATI 1.2 UNITS (-); PROTIME (NOT ORD) 15.1 SEC (12.0-14.5)
[2016-06-27 04:59] LABS: BASOPHILS 0.1 %; BASOPHILS ABSOLUTE 0.01 10/3/uL (0.0-0.16); EOSINOPHILS 2.7 %; EOSINOPHILS ABSOLUTE 0.18 10/3/uL (0.0-0.53); HEMATOCRIT 24.1 % (40.0-51.0); HEMOGLOBIN 8.2 g/dL (13.6-17.8); IMMATURE GRANULOCYTES 0.7 %; IMMATURE GRANULOCYTES ABSOLUTE 0.05 10/3/uL (0.0-0.11); LYMPHOCYTES 15.3 %; LYMPHOCYTES ABSOLUTE 1.02 10/3/uL (0.67-4.30); MANUAL DIFF NO %; MEAN CORPUSCULAR HEMOGLOB 31.2 pg (26.0-34.0); MEAN CORPUSCULAR VOLUME 91.6 fL (80-100); MEAN PLATELET VOLUME 9.4 fL (9.2-13.0); MONOCYTES 12.3 %; MONOCYTES ABSOLUTE 0.82 10/3/uL (0.21-1.20); NEUTROPHILS 68.9 %; PLATELET COUNT 117 10/3/uL (150-400); RBC DISTRIBUTION WIDTH 13.6 % (12.0-16.0); RED CELL COUNT 2.63 10/6/uL (4.7-6.1); WHITE BLOOD CELLS 6.7 10/3/uL (4.5-10.5)
[2016-06-27 05:02] LABS: CALCIUM, SERUM 7.9 MG/DL (8.5-10.4); CHLORIDE, SERUM 106 MMOL/L (96-112); CO2 (CARBON DIOXIDE) 30 MMOL/L (24-34); CREATININE 0.82 MG/DL (0.70-1.30); GFR AFRICAN AMERICAN 96 ML/MIN (>=60); GFR NON AFRICAN AMERICAN 83 ML/MIN (>=60); GLUCOSE, SERUM 114 MG/DL (60-99); POTASSIUM, SERUM 4.4 MMOL/L (3.5-5.3); SODIUM, SERUM 139 MMOL/L (135-148)
[2016-06-27 05:03] LABS: BUN (BLOOD UREA NITROGEN) 29 MG/DL (6-23)
[2016-06-28 06:42] LABS: BASOPHILS 0 %; EOSINOPHILS 2.5 %; EOSINOPHILS ABSOLUTE 0.15 10/3/uL (0.0-0.53); HEMATOCRIT 23.4 % (40.0-51.0); HEMOGLOBIN 7.8 g/dL (13.6-17.8); IMMATURE GRANULOCYTES 1.3 %; IMMATURE GRANULOCYTES ABSOLUTE 0.08 10/3/uL (0.0-0.11); LYMPHOCYTES ABSOLUTE 0.85 10/3/uL (0.67-4.30); MANUAL DIFF NO %; MEAN CORPUS HGB CONC 33.3 g/dL (32.0-36.0); MEAN CORPUSCULAR HEMOGLOB 30.8 pg (26.0-34.0); MEAN CORPUSCULAR VOLUME 92.5 fL (80-100); MEAN PLATELET VOLUME 9.2 fL (9.2-13.0); MONOCYTES 14.1 %; MONOCYTES ABSOLUTE 0.86 10/3/uL (0.21-1.20); NEUTROPHILS 68.1 %; NEUTROPHILS ABSOLUTE 4.14 10/3/uL (2.02-8.40); PLATELET COUNT 141 10/3/uL (150-400); RBC DISTRIBUTION WIDTH 13.7 % (12.0-16.0); RED CELL COUNT 2.53 10/6/uL (4.7-6.1); WHITE BLOOD CELLS 6.1 10/3/uL (4.5-10.5)
[2016-06-28 06:51] LABS: INTERNATIONAL NORMAL RATI 1.4 UNITS (-); PROTIME (NOT ORD) 16.6 SEC (12.0-14.5)
[2016-06-28 06:53] LABS: CALCIUM, SERUM 8.2 MG/DL (8.5-10.4); CHLORIDE, SERUM 103 MMOL/L (96-112); CO2 (CARBON DIOXIDE) 28 MMOL/L (24-34); CREATININE 0.76 MG/DL (0.70-1.30); GFR AFRICAN AMERICAN 99 ML/MIN (>=60); GFR NON AFRICAN AMERICAN 86 ML/MIN (>=60); GLUCOSE, SERUM 98 MG/DL (60-99); POTASSIUM, SERUM 4.1 MMOL/L (3.5-5.3); SODIUM, SERUM 139 MMOL/L (135-148)
[2016-06-28 06:54] LABS: BUN (BLOOD UREA NITROGEN) 20 MG/DL (6-23)
[2016-06-28 07:38] LABS: PROCALCITONIN 0.12 ng/mL (<0.5)
[2016-06-29 04:39] LABS: INTERNATIONAL NORMAL RATI 1.3 UNITS (-); PROTIME (NOT ORD) 16.4 SEC (12.0-14.5)
[2016-06-29] MEDS ORDERED: PRIN5 PO (12:00)
[2016-06-29] MEDS ORDERED: CORDARONE PO (12:01)
[2016-06-29] MEDS ORDERED: L20 PO (12:01)
[2016-06-29] MEDS ORDERED: LIPITOR40 PO (12:01)
[2016-06-29] MEDS ORDERED: FESO4 PO (12:02)
[2016-06-29] MEDS ORDERED: ASAB PO (12:02)
[2016-06-29] MEDS ORDERED: OXYCOD PO (12:03)
[2016-06-29] MEDS ORDERED: VITC500 PO (12:03)
== END 2016-06-29 13:43 | disposition home health service (06) | DRG 217 ==
LOC: CORLMH 05:51 → SSU1 06:00 → SDC/OF 06-22 08:44 → CVICU 06-22 15:23 → 5NO 06-24 13:35
PROVIDERS: Internal Medicine Cardiovascular Disease; Nurse Practitioner Family; Thoracic Surgery (Cardiothoracic Vascular Surgery)
PROC: 021109W Bypass Coronary Artery, Two Arteries from Aorta with Autologous Venous Tissue, Open Approach (ICD-10-PCS; principal; 2016-06-21)
PROC: 4A023N7 Measurement of Cardiac Sampling and Pressure, Left Heart, Percutaneous Approach (ICD-10-PCS; 2016-06-21)
PROC: 02UJ0JZ Supplement Tricuspid Valve with Synthetic Substitute, Open Approach (ICD-10-PCS; 2016-06-21)
PROC: 0210099 Bypass Coronary Artery, One Artery from Left Internal Mammary with Autologous Venous Tissue, Open Approach (ICD-10-PCS; 2016-06-21)
PROC: 06BP3ZZ Excision of Right Saphenous Vein, Percutaneous Approach (ICD-10-PCS; 2016-06-21)
PROC: 5A1221Z Performance of Cardiac Output, Continuous (ICD-10-PCS; 2016-06-21)
PROC: B246ZZ4 Ultrasonography of Right and Left Heart, Transesophageal (ICD-10-PCS; 2016-06-21)
PROC: B2111ZZ Fluoroscopy of Multiple Coronary Arteries using Low Osmolar Contrast (ICD-10-PCS; 2016-06-21)
PROC: B2151ZZ Fluoroscopy of Left Heart using Low Osmolar Contrast (ICD-10-PCS; 2016-06-21)
DX: I25.110 Atherosclerotic heart disease of native coronary artery with unstable angina pectoris (principal); J98.11 Atelectasis; J90 Pleural effusion, not elsewhere classified; D62 Acute posthemorrhagic anemia; I36.1 Nonrheumatic tricuspid (valve) insufficiency; I10 Essential (primary) hypertension; E78.5 Hyperlipidemia, unspecified; E66.9 Obesity, unspecified; Z85.46 Personal history of malignant neoplasm of prostate; H35.30 Unspecified macular degeneration; N40.0 Benign prostatic hyperplasia without lower urinary tract symptoms; Z87.442 Personal history of urinary calculi; Z90.49 Acquired absence of other specified parts of digestive tract; Z79.899 Other long term (current) drug therapy; Z82.49 Family history of ischemic heart disease and other diseases of the circulatory system; Z82.3 Family history of stroke; Z87.891 Personal history of nicotine dependence; I48.0 Paroxysmal atrial fibrillation
CPT/HCPCS: 36120; 36415; 71010; 71020; 80048; 80053; 80061; 81001; 82330; 82803; 82805; 82947; 82962; 83036; 83540; 83550; 83735; 83880; 84132; 84145; 84295; 85014; 85018; 85025; 85049; 85347; 85610; 85730; 86850; 86900; 86901; 86920; 87641; 93005; 93312; 93320; 93325; 93458; 93880; 94002; 94640; 94660; 94770; 99152; 99153; A9270-GY; C1713; C1769; C1894; J0282; J0690; J2250; J2370; J2405; J2440; J2795; J3010; J3475; J3480; P9045; Q9967